=== PATIENT | female | born 1985 | race Caucasian/White ===

== ENCOUNTER 2024-08-06 09:28 | Emergency (ER) | payer OTHER, SELFPAY ==
[2024-08-06] VITALS (7 sets, daily range): BP systolic 131–169; BP diastolic 74–99; PULSE 56–63
--- NOTE | 2024-08-06 11:06 | ED.GENMED ---
History of Present Illness
General
Chief Complaint: Fainting Sensation
Source: patient
Exam Limitations: none
Time Seen by Provider: 08/06/24 10:29
Nursing documentation reviewed up to this point in time: agreed with
History of Present Illness
History of Present Illness:
39 y/o F with h/o HTN, on OCPs
3 days ago while seated watching tv on the couch she suddenly felt vry lightheaded like she may pass out. she has passed out a few times in her life, never had any w/u. she laid down and put an ice pack on her neck. she got nauesated and felt like
having diarrhea but didn't.
it passed aftr 30 minutes
since then she has had a multitude of sypmtoms: fatigue, exertional dyspnea, headache, nausea
she checked her BP and it was 160/103 (at highest) last night
today she had elevated bp readings 140s/90s
And this prompted her to get seen. She does not feel any worse today than the other days. She has not had any other episodes of near syncope. Patient has never seen cardiology for her near syncopal episodes before.
She does have a family history of coronary artery disease in her father
Past History
Past History
ED Past Medical History: None
Social History
Tobacco: Non-smoker
Personal: Single
Living: with family
Employment: Employed
Review of Systems
Review of Systems
Allergies reviewed?: Yes
All Other Systems: Not applicable
Phy Exam
Physical Exam
Physical Exam:
GENERAL: Alert , in no apparent distress nontoxic, well-appearing, no distress
EYE: pupils equal and reactive
NECK: Supple
ENT: o/p clr, mmm.
CARDIAC: Regular rate and rhythm ., No edema
LUNGS: Clear breath sounds bilaterally, no acute respiratory distress, no wheezes/rales/rhonchi
ABDOMEN: Soft, without focal tenderness, no r/g, no cvat, normal bowel sounds
NEUROLOGICAL: Alert and oriented, no focal neuro deficits, cranial nerves intact, 5 out of 5 strength, normal ambulation
SKIN: Warm and dry, skin intact.
MUSCULOSKELETAL: No edema, well perfused. neg heber's sign
PSYCH: Normal and appropriate interaction.
Course
Orders/Labs/Results
Orders:
Orders
08/06/24 09:44
EKG [Electrocardiogram (*1)] Urgent
Reason for Study: Fatigue / Weakness
EKG- Treatment ONCE
08/06/24 10:54
Orthostatic VS- Treatment ONCE
08/06/24 11:08
COVID-19 Antigen Urgent
Source: Nasal Swab
Complete Blood Count/With Diff Urgent
NT-proBNP Urgent
TSH Reflex To Free T4 Urgent
Troponin I Urgent
Influenza A+B Rapid Molecular Urgent
ROBERTO Source: Nasal Swab
Specimen Description:
08/06/24 11:11
Comprehensive Metabolic Panel Urgent
D-Dimer Urgent
Magnesium Urgent
08/06/24 11:56
CR Chest - 2 Views Urgent
Comment:
Reason For Exam: SOB
08/06/24 13:01
Amlodipine [Norvasc] 5 mg PO NOW STA
Ketorolac [Toradol] 30 mg IV NOW STA
Abnormal Lab Results
08/06/24
11:08
Absolute Monos (auto) 0.7 H 10^3/uL
(0.1-0.6)
08/06/24 11:08
08/06/24 11:11
Vital Signs
Initial and Last Documented VS:
Initial Vital Signs
Temp Pulse Resp BP Pulse Ox
37.1 C 76 16 169/99 98
08/06/24 09:41 08/06/24 09:41 08/06/24 09:41 08/06/24 09:41 08/06/24 09:41
Last Documented Vital Signs
Temp Pulse Resp BP Pulse Ox
37.1 C 60 14 139/74 99
08/06/24 09:41 08/06/24 13:00 08/06/24 13:00 08/06/24 13:00 08/06/24 13:00
MDM/Problems Addressed
Differential Diagnosis Includes:
near syncope, orthostasis, hypertensive urgency, dehydration, viral syndrome
MDM/Problems Addressed:
39 y/o F
3 days ago felt lightheaded like she would pass out while seated
this has hapend to her a few times in her life; never had cards w/u
was on bp meds up until several months ago when her bp was controlled so she stopped them, her PCP aware
pt has not checked bp for aw hile
but started chekcing beuase she was feeling not well, fatigued, a little dyspneic, headache, etc
bp at home 160/100
she has not had any chest pain
no other syncope
on OCPs
pt is well appearing
no distress
no exam findings, no murmur, clear lungs
neuro intact
orthostatic VS neg
trop, d dimer neg
normal renal function
tsh contoolled
bp 140/90s
ekg nonischemic
will initiate amlodipein again
recommend outaptietn fu
cxr independently reivewed by me and neg
pt aware of return precautions
cards f/u
*Critical Care Note
Total Time (30-74mins, 75-104mins- exclusive of procedures): Not Applicable
ED Attending Note
-
Portions of this chart may have been created with voice recognition software.� Occasional wrong word or��sound alike� substitutions may have occurred due to the inherent limitations of voice recognition software.
Discharge Plan
Departure
Patient Disposition: Home (Routine Discharge)
Date of Disposition: 08/06/24
Time of Disposition: 13:26
Patient with high blood pressure during this ER visit?: Yes
Condition: Fair
Covid-19: Not Applicable
Discharge Problem:
Near syncope, HTN (hypertension)
Instructions: Near Fainting (DC), BLOOD PRESSURE
Prescriptions:
New
amlodipine 5 mg tablet
5 mg PO DAILY Qty: 30 0RF
No Action
PNV with Ca,no.71-iron-FA 1 EACH tablet
1 tab PO DAILY
levothyroxine [Synthroid] 75 MCG tablet
1 tab PO DAILY
nitrofurantoin monohyd/m-cryst 100 MG capsule
100 mg PO BID Qty: 14 0RF
Referrals:
Brenton Linda MD [Family Provider] -
Sudhir Ross MD [Active] - Follow up in 1 week (cardiology)
Activity Restrictions/Additional Instructions:
Your work appears very reassuring. You did have an elevated blood pressure so I am going to restart your amlodipine 5 mg once a day. Follow-up with your family doctor this week. You may want a cardiology referral for the near passing out episode
that you had several days ago. We ruled out heart attack, blood clot, obvious infection etc. You should make sure you stay hydrated
Return for passing out, severe headache, chest pain or worsening shortness of breath or any concerns.
Interventions
Interventions:
*Risk Screen - Suicide Last Done: 08/06/24 09:41
*General Assessment Last Done: 08/06/24 11:00
*Neglect/Abuse Screening Last Done: 08/06/24 09:41
*ED COVID-19 Vaccine History Last Done: 08/06/24 11:00
*Nursing Disposition Last Done: 08/06/24 14:12
ED- Cardiac Assessment Last Done: 08/06/24 11:00
ED- Neurological Assessment Last Done: 08/06/24 11:00
Discharge Date and Time
Discharge Date/Time: 08/06/24 14:13
Print Language: [id number]
[2024-08-06 11:26] LABS: % Basophils 0.4 % (0-2); % Eosinophils 1.9 % (0-6); % Immature Granulocytes 0.4 % (0-0.5); % Lymphocytes 30.3 % (20.5-51.1); % Monocytes 8.7 % (1.7-9.3); % Neutrophils 58.3 % (42.2-75.2); Absolute Eosinophils 0.2 10^3/uL (0-0.7); Absolute Lymphocytes 2.4 10^3/uL (1.2-3.4); Absolute Monocytes 0.7 10^3/uL (0.1-0.6); Absolute Neutrophils 4.7 10^3/uL (1.4-6.5); Hematocrit 39.6 % (37.0-47.0); Hemoglobin 13.1 g/dL (12.0-16.0); Mean Corp Hgb Conc. 33.1 g/dL (33.0-37.0); Mean Corpuscular Hgb 29.2 pg (27.0-31.0); Mean Corpuscular Volume 88.2 fL (81.0-99.0); Mean Platelet Volume 10.4 fL (7.4-10.4); Nucleated Red Blood Cells % 0 %; Platelet Count 300 10^3/uL (130-400); Red Blood Cell Count 4.49 10^6/uL (4.20-5.40); Red Cell Dist. Width 12.3 % (11.5-14.5)
[2024-08-06 11:30] LABS: COVID-19 Antigen Negative (Negative)
[2024-08-06 11:44] LABS: NT-proBNP 106 pg/ml; Troponin I < 0.012 ng/ml
[2024-08-06 11:48] LABS: ALT (SGPT) 22 U/L (0-35); AST (SGOT) 25 U/L (14-36); Albumin 4.3 g/dl (3.5-5.0); Alkaline Phosphatase 58 U/L (38-126); Blood Urea Nitrogen 13 mg/dl (7-17); Calcium 9.3 mg/dl (8.4-10.2); Carbon Dioxide 22 mmol/L (22-30); Chloride 106 mmol/L (98-107); Glucose 91 mg/dl (70-99); Magnesium 2.3 mg/dl (1.6-2.3); Potassium 4.5 mmol/L (3.5-5.1); Sodium 138 mmol/L (135-145); Total Bilirubin 0.7 mg/dl (0.2-1.3); Total Protein 7.1 g/dl (6.3-8.2); eGFR > 60.00
[2024-08-06 11:54] LABS: D-Dimer < 0.27 ug/mlFEU (0.00-0.50)
[2024-08-06 12:03] LABS: TSH Reflex To Free T4 1.42 uIU/ml (0.47-4.68)
[2024-08-06] MEDS: NORVASC 5 MG PO (13:36)
[2024-08-06] MEDS: TORADOL 30 MG IV (13:37)
== END 2024-08-06 14:13 | disposition home or self-care (01) ==
LOC: EMR 09:28
PROVIDERS: Physician Assistant; EMERGENCY PHYSICIAN Emergency Medicine; FAMILY PHYSICIAN Orthopaedic Surgery
DX: R55 Syncope and collapse (principal); I10 Essential (primary) hypertension; Z79.3 Long term (current) use of hormonal contraceptives
CPT/HCPCS: 99285; 96374; 71046; 80053; 83735; 83880; 84443; 84484; 85025; 85379; 87502; 87811; 93005